=== PATIENT | male | born 1975 | race Caucasian/White ===

== ENCOUNTER 2024-02-04 20:35 | Inpatient (IN) | payer OTHER ==
[2024-02-04 21:56] LABS: Absolute Basophils 0.1 K/uL (0-0.5); Absolute Eosinophils 0.1 K/uL (0-0.5); Absolute Lymphocytes (CBC) 1.8 K/uL (0.7-4.9); Absolute Monocytes 1.1 K/uL (0.1-1.3); Absolute Neutrophil 11.4 K/uL (1.8-8.0); Basophils % 0.4 % (0-1.3); Eosinophils % 0.8 % (0-4.4); Hematocrit 47.7 % (39.6-49.0); Hemoglobin 15.8 g/dL (13.6-17.9); Lymphocytes % 12.6 % (15.3-44.8); MCH 30.1 pg (27.0-35.0); MCHC 33.2 g/dL (32.0-36.0); MCV 90.6 fL (80-100); Monocytes % 7.3 % (3.3-12.3); Neutrophils % 78.9 % (41.7-73.7); Nucleated Red Blood Cells % 0.1 % (0-0); Platelets 343 thou/uL (152-406); RBC Red Blood Cell Count 5.26 M/uL (4.33-5.43); Red Cell Distribution Width 13.6 % (12.1-15.2)
[2024-02-04] MEDS ORDERED: NA CHLORIDE 0.9% 1,000 ML ONE (21:57)
[2024-02-04] MEDS ORDERED: MORPHINE 4 MG/ML SYR ONE (21:57)
[2024-02-04] MEDS ORDERED: ONDANSETRON 4 MG/2 ML VIAL ONE (21:57)
[2024-02-04 22:12] LABS: Specific Gravity 1.007 (1.005-1.030); Sqamous Epithelial None Seen /HPF (None Seen); Urine Bacteria None Seen /HPF (<20); Urine Bilirubin NEGATIVE (Negative); Urine Blood Negative (Negative); Urine Clarity Turbid (Clear); Urine Color Light-Yellow (Yellow); Urine Crystals Unidentified Few /HPF (None Seen); Urine Culture Reflex Order NOT NEEDED; Urine Glucose NEGATIVE (Negative); Urine Ketones NEGATIVE (Negative); Urine Microscopic Reflex YN ORDER UMIC; Urine Nitrite NEGATIVE (Negative); Urine Protein NEGATIVE (Negative); Urine RBC <5 /HPF (None Seen); Urine Urobilinogen Normal (Normal); Urine WBC <5 /HPF (<5); Urine Yeast (Budding) Trace /HPF (None Seen)
[2024-02-04 22:12] LABS: Albumin 3.3 g/dL (3.4-5.0); Albumin/Globulin Ratio 0.6 (1.1-1.8); Anion Gap 9.3 mEq/L (5.0-15.0); Bilirubin Total 0.6 mg/dL (0.2-1.0); Globulin 5.1 g/dL (2.3-3.5); Potassium 3.3 mEq/L (3.5-5.1); Protein, Total 8.4 g/dL (6.4-8.2)
--- NOTE | 2024-02-05 00:05 | RAD REPORT ---
EXAM DESCRIPTION: Abdomen Exam Limited CLINICAL HISTORY: 48 years Male, ABD PAIN TECHNIQUE: Omentum sonographic imaging of the gallbladder was performed. COMPARISON: None. FINDINGS: Partially contracted gallbladder. Multiple shadowing gallstones. No gallbladder wall thickening or pe richolecystic edema. Common bile duct measures 4 mm. IMPRESSION: 1. Cholelithiasis without sonographic evidence for cholecystitis. Electronically signed by: Urban Cummings MD 02/04/2024 11:51 PM [facility] ([facility])[3] N Due to temporary technical issues with the PACS/FOXFRAME.COMibe reporting system, reports are being signed by the in-house radiologist without review as a courtesy to ensure prompt reporting the interpreting radiologist is fully responsible for the content of the report. Transcribed Date/Time: 02/05/2024 12:04 AM
--- NOTE | 2024-02-05 00:59 | EDPHYS ---
Physician Documentation [facility] Name: Haja Milner Age: 48 yrs Sex: Male : 1975 Arrival Date: 02/04/2024 Time: 20:35 Bed 15 Private MD: ED Physician Gene Alexis HPI: 02/03 22:17 This 48 yrs old Male presents to ER via Ambulatory with complaints of Abdominal sb4 Swelling, Abdominal Pain, Diarrhea. 22:17 patient reports intermittent abdominal pain, abdominal swelling, and diarrhea x 1 week. sb4 states the pain is worse after eating. denies any n/v. did force himself to vomit once and felt better afterwards. denies any blood in his stool. denies any prior episodes of this. only medical history of htn. Historical: - Allergies: 21:00 PENICILLINS; cm10 - PMHx: 21:00 Hypertensive disorder; cm10 - PSHx: 21:00 None; cm10 - Immunization history:: Adult Immunizations up to date. - Infectious Disease History:: Denies. - Social history:: Smoking status: Patient denies any tobacco usage or history of. ROS: 22:17 Constitutional: Negative for fever, chills, and weight loss, sb4 22:17 Abdomen/GI: Positive for abdominal pain, nausea, vomiting, and diarrhea, abdominal distension, 22:17 All other systems are negative, Exam: 22:17 Head/Face: Normocephalic, atraumatic. Eyes: Extra-ocular motions intact. Periorbital sb4 areas with no swelling, redness, or edema. ENT: Mucous membranes moist. Cardiovascular: Regular rate and rhythm with a normal S1 and S2. Respiratory: No increased work of breathing, no retractions or nasal flaring. Skin: Warm, dry with normal turgor. Normal color with no rashes, no lesions, and no evidence of cellulitis. 22:17 Constitutional: The patient appears alert, awake, obese, obviously ill, 22:17 Abdomen/GI: Inspection: distension, that is mild, obese Palpation: soft, mild abdominal tenderness, in all quadrants, Vital Signs: 20:58 BP 139 / 82; Pulse 102; Resp 18; Temp 99(O); Pulse Ox 95% on R/A; Weight 181.44 kg; cm10 Height 5 ft. 11 in. ; Pain 8/10; 23:48 BP 130 / 73; Pulse 92; Resp 16; Pulse Ox 98% ; jb4 20:58 Body Mass Index 55.79 (181.44 kg, 180.34 cm) cm10 20:58 Pain Scale: Adult cm10 MDM: 21:08 Medical Screening Exam initiated sb4 02/04 00:55 Data reviewed: vital signs, nurses notes, lab test result(s), radiologic studies, I sb4 have discussed the patient's presentation/case with the attending Emergency Department Physician; and as a result, I will admit patient. Consideration of Admission/Observation Patient was admitted/placed on observation. Management of patient was discussed with the following: Boatbuilder Wood: Dr. Mayer, agrees to consult. Care significantly affected by the following chronic conditions: Hypertension, Obesity. Counseling: I had a detailed discussion with the patient and/or guardian regarding the historical points, exam findings, and any diagnostic results supporting the discharge/admit diagnosis, lab results, radiology results, the need for further work-up and treatment in the hospital. 02/03 21:26 Order name: CBC with Diff; Complete Time: 21:58 sb4 02/03 21:26 Order name: CMP; Complete Time: 22:12 sb4 02/03 21:26 Order name: Lipase; Complete Time: 22:12 sb4 02/03 21:26 Order name: Urinalysis w/ reflexes; Complete Time: 22:13 sb4 02/04 00:54 Order name: Blood Culture Adult (2) sb4 02/04 00:54 Order name: Lactate w/ 2H reflex if indic.; Complete Time: 15:28 sb4 02/04 00:54 Order name: Protime (+inr); Complete Time: 15:28 sb4 02/04 00:54 Order name: Ptt, Activated; Complete Time: 15:28 sb4 02/04 01:40 Order name: Urinalysis w/ reflexes EDMS 02/04 01:40 Order name: CBC with Automated Diff EDMS 02/04 01:40 Order name: CBC with Automated Diff EDMS 02/04 01:40 Order name: Comprehensive Metabolic Panel EDMS 02/04 01:40 Order name: Comprehensive Metabolic Panel EDMS 02/03 22:23 Order name: Abdomen Limited US; Complete Time: 00:45 sb4 02/03 23:16 Order name: Abdomen 1 View (KUB) XRAY; Complete Time: 15:28 sb4 02/04 01:40 Order name: CONS Physician Consult EDNJ 02/03 21:26 Order name: IV Saline Lock; Complete Time: 22:10 sb4 02/03 21:26 Order name: Labs collected and sent; Complete Time: 22:10 sb4 Administered Medications: 02/03 22:10 Drug: Ondansetron IVP 4 mg IVP once; over 2 minutes Route: IVP; Site: right antecubital;jb4 02/04 00:57 Follow up: Response: No adverse reaction; Marked relief of symptoms; [facility] 02/[facility] 22:10 Drug: morphine IVP or IV 4 mg IVP once over 4 mins Route: IVP; Infused Over: 4 mins; jb4 Site: right antecubital; 22:40 Follow up: Response: No adverse reaction; Marked relief of symptoms; Pain is decreased; jb4 RASS: Alert and Calm (0) 22:10 Drug: NS 0.9% IV 1000 ml IV at 1 bolus Per protocol; to be given as a bolus over 60 jb4 minutes Route: IV; Rate: 1 bolus; Site: right antecubital; 23:10 Follow up: Response: No adverse reaction; IV Status: Completed infusion; IV Intake: jb4 1000ml 02/04 01:53 Drug: Ciprofloxacin IVPB 400 mg 200 ml IVPB once over 60 mins Volume: 200 ml; Route: jb4 IVPB; Infused Over: 60 mins; Site: right antecubital; 01:53 Drug: metroNIDAZOLE IVPB 500 mg 100 ml IVPB at 200 ml/hr once over 30 mins Volume: 100 jb4 ml; Route: IVPB; Rate: 200 ml/hr; Infused Over: 30 mins; Site: left forearm; 01:53 Drug: NS 0.9% IV 1000 ml IV at 100 ml/hr once; to be given as a bolus over 60 minutes jb4 Route: IV; Rate: 100 ml/hr; Site: left forearm; Disposition: 04:15 Co-signature as Attending Physician, Gene Alexis MD I agree with the assessment sp4 and plan of care. I reviewed the patient's care provided by Advanced Practice Provider \T\ agree w/ the diagnosis \T\ care plan. I personally saw the pt \T\ performed a substantive portion of the visit, incldng all aspects of the (History/Exam/Medical Decision Making). Disposition Summary: 02/05/24 00:58 Hospitalization Ordered Notes: Hospitalization Status: Inpatient Admission sb4 Provider: Aakash Espinosa sb4 Location: Telemetry/MedSurg (Inpatient) sb4 Condition: Fair sb4 Problem: new sb4 Symptoms: are unchanged sb4 Bed/Room Type: Standard sb4 Room Assignment: 408(02/05/24 01:52) ha1 Diagnosis - Small bowel obstruction sb4 Discharge Instructions: - Discharge Summary Sheet sb4 Forms: - Medication Reconciliation Form sb4 - SBAR form sb4 - Leadership Thank You Letter sb4 Signatures: Dispatcher [employer] EDHaja Rojo RN RN jb4 Viola Motta RN RN ha1 Dulce Maria Grimes PA-C PANeida sb4 Gene Alexis MD MD sp4 Reva Mayer RN RN cm10 Corrections: (The following items were deleted from the chart) 02/03 21:00 21:00 Allergies: No Known Allergies; cm10 cm10 21:27 21:27 CBC+H.LAB.BRZ ordered. EDMS EDMS 21:27 21:27 COMPREHENSIVE METABOLIC PANEL+C.LAB.BRZ ordered. EDMS EDMS 21:27 21:27 LIPASE+C.LAB.BRZ ordered. EDMS EDMS 21:27 21:27 Urinalysis+U.LAB.BRZ ordered. EDMS EDMS 22:51 21:27 Abdomen Pelvis W Con+CT.RAD.BRZ ordered. EDNJ EDMS 02/04 00:54 00:54 BLOOD CULTURE*+BA.LAB.BRZ ordered. EDMS EDMS 00:54 00:54 LACTATE+C.LAB.BRZ ordered. EDMS EDMS 00:54 00:54 PROTIME (+INR)+COAG.LAB.BRZ ordered. EDMS EDMS 00:54 00:54 PTT, ACTIVATED+COAG.LAB.BRZ ordered. EDMS EDMS 01:52 00:58 sb4 ha1
--- NOTE | 2024-02-05 00:59 | ER ---
Nurse's Notes [facility] Name: Haja Milner Age: 48 yrs Sex: Male : 1975 Arrival Date: 02/04/2024 Time: 20:35 Bed 15 Private MD: Diagnosis: Small bowel obstruction Presentation: 02/03 20:58 Chief complaint: Patient states: [place] THURSDAY SAT, SUN. PT STATES THURSDAY HE FELT cm10 BETTER WENT AND SAW PCP AND WAS PLACED ON ABX. PT STATES THAT HE FELT WORSE AFTER TAKING ABX SO DID NOT CONTINUE THEM. PT REPORTS THAT HE HAS BEEN TRYING TO EAT BUT EVERYTHING FEELS STUCK IN HIS STOMACH AND HIS ABDOMEN FEELS TIGHT. Coronavirus screen: Client denies travel out of the [place] in the last 14 days. Ebola Screen: Patient denies travel to an Ebola-affected area in the 21 days before illness onset. No symptoms or risks identified at this time. Initial Sepsis Screen: Does the patient meet any 2 criteria? HR > 90 bpm. Does the patient have a suspected source of infection? No. Patient's initial sepsis screen is negative. Risk Assessment: Do you want to hurt yourself or someone else? Patient reports no desire to harm self or others. Onset of symptoms was February 04, 2024. 20:58 Method Of Arrival: Ambulatory cm10 20:58 Acuity: JONATHAN 3 cm10 Triage Assessment: 21:01 General: Appears in no apparent distress. uncomfortable. General: Behavior is calm, cm10 cooperative. Pain: Complains of pain in abdomen Pain does not radiate. Pain currently is 8 out of 10 on a pain scale. Quality of pain is described as TIGHTNESS. Neuro: No deficits noted. Level of Consciousness is awake, alert, obeys commands, Oriented to person, place, time, situation, Appropriate for age. Neuro: Oriented to. Respiratory: No deficits noted. Airway is patent Respiratory effort is even, unlabored, Respiratory pattern is regular, symmetrical. Historical: - Allergies: 21:00 PENICILLINS; cm10 - PMHx: 21:00 Hypertensive disorder; cm10 - PSHx: 21:00 None; cm10 - Immunization history:: Adult Immunizations up to date. - Infectious Disease History:: Denies. - Social history:: Smoking status: Patient denies any tobacco usage or history of. Screenin/06 03:01 [facility] ED Fall Risk Assessment (Adult) History of falling in the last 3 months, ha1 including since admission No falls in past 3 months (0 pts) Confusion or Disorientation No (0 pts) Intoxicated or Sedated No (0 pts) Impaired Gait No (0 pts) Mobility Assist Device Used Yes (1 pt) Altered Elimination No (0 pt) Score/Fall Risk Level 3 or more points = High Risk Oriented to surroundings, Maintained a safe environment, Educated pt \T\ family on fall prevention, incl call for assistance when getting out of bed, Hourly rounding (assess needs \T\ fall precautionary measures) done. Abuse screen: Denies threats or abuse. Denies injuries from another. Nutritional screening: No deficits noted. Tuberculosis screening: No symptoms or risk factors identified. Assessment: 02/03 21:15 General: Appears in no apparent distress. uncomfortable, Behavior is calm, cooperative, jb4 appropriate for age. Pain: Complains of pain in abdomen Pain does not radiate. Pain currently is 9 out of 10 on a pain scale. Neuro: Level of Consciousness is awake, alert, obeys commands, Oriented to person, place, time, situation. Cardiovascular: Patient's skin is warm and dry. Respiratory: Airway is patent Respiratory effort is even, unlabored, Respiratory pattern is regular, symmetrical. GI: Abdomen is non-distended, obese, Reports upper abdominal pain, nausea. Derm: Skin is intact, Skin is pink, warm \T\ dry. Musculoskeletal: Circulation, motion, and sensation intact. Range of motion: intact in all extremities. 22:30 Reassessment: Patient appears in no apparent distress at this time. Patient and/or jb4 family updated on plan of care and expected duration. Pain level reassessed. Patient is alert, oriented x 3, equal unlabored respirations, skin warm/dry/pink. 23:50 Reassessment: Patient appears in no apparent distress at this time. Patient and/or jb4 family updated on plan of care and expected duration. Pain level reassessed. Patient is alert, oriented x 3, equal unlabored respirations, skin warm/dry/pink. Vital Signs: 20:58 BP 139 / 82; Pulse 102; Resp 18; Temp 99(O); Pulse Ox 95% on R/A; Weight 181.44 kg; cm10 Height 5 ft. 11 in. ; Pain 8/10; 23:48 BP 130 / 73; Pulse 92; Resp 16; Pulse Ox 98% ; jb4 20:58 Body Mass Index 55.79 (181.44 kg, 180.34 cm) cm10 20:58 Pain Scale: Adult cm10 ED Course: 20:39 Patient arrived in ED. jj6 20:41 Dulce Maria Grimes PA-C is PHCP. sb4 20:41 Gene Alexis MD is Attending Physician. sb4 21:00 Triage completed. cm10 21:01 Arm band placed on left wrist. Patient placed in waiting room. cm10 22:09 Haja Ngo, RN is Primary Nurse. jb4 22:10 Urinalysis w/ reflexes Sent. jb4 23:00 No provider procedures requiring assistance completed. Inserted saline lock: 22 gauge ha1 in right forearm, using aseptic technique. 23:26 Abdomen Limited US In Process Unspecified. EDMS 12 00:08 Abdomen 1 View (KUB) XRAY In Process Unspecified. EDMS 00:57 Aakash Espinosa MD is Hospitalizing Provider. sb4 01:39 Inserted saline lock: 24 gauge in left wrist, using aseptic technique. Blood collected. ha1 Flushed with 10 mL NS. Administered Medications: 02/03 22:10 Drug: Ondansetron IVP 4 mg IVP once; over 2 minutes Route: IVP; Site: right antecubital;jb4 02/04 00:57 Follow up: Response: No adverse reaction; Marked relief of symptoms; Nausea is decreasedjb4 02/03 22:10 Drug: morphine IVP or IV 4 mg IVP once over 4 mins Route: IVP; Infused Over: 4 mins; jb4 Site: right antecubital; 22:40 Follow up: Response: No adverse reaction; Marked relief of symptoms; Pain is decreased; jb4 RASS: Alert and Calm (0) 22:10 Drug: NS 0.9% IV 1000 ml IV at 1 bolus Per protocol; to be given as a bolus over 60 jb4 minutes Route: IV; Rate: 1 bolus; Site: right antecubital; 23:10 Follow up: Response: No adverse reaction; IV Status: Completed infusion; IV Intake: jb4 1000ml 02/04 01:53 Drug: Ciprofloxacin IVPB 400 mg 200 ml IVPB once over 60 mins Volume: 200 ml; Route: jb4 IVPB; Infused Over: 60 mins; Site: right antecubital; 01:53 Drug: metroNIDAZOLE IVPB 500 mg 100 ml IVPB at 200 ml/hr once over 30 mins Volume: 100 jb4 ml; Route: IVPB; Rate: 200 ml/hr; Infused Over: 30 mins; Site: left forearm; 01:53 Drug: NS 0.9% IV 1000 ml IV at 100 ml/hr once; to be given as a bolus over 60 minutes jb4 Route: IV; Rate: 100 ml/hr; Site: left forearm; Intake: 02/03 23:10 IV: 1000ml; Total: 1000ml. jb4 Outcome: 02/04 00:58 Decision to Hospitalize by Provider. sb4 03:02 Admitted to Tele accompanied by tech, via stretcher, room 408, with chart, ha1 03:02 Condition: stable 03:07 Patient left the ED. vk Signatures: Dispatcher [employer] EDMS Haja Ngo RN RN jb4 Frannie Allen jj6 Viola Motta RN RN ha1 Dulce Maria Grimes, PA-C PA-C sb4 Reva Mayer, RN RN cm10 Nata nUger vk Corrections: (The following items were deleted from the chart) 02/03 21:00 21:00 Allergies: No Known Allergies; cm10 cm10 02/04 01:53 01:53 metroNIDAZOLE IVPB 500 mg 100 ml IVPB at 200 ml/hr in left antecubital over 30 jb4 mins jb4
[2024-02-05] MEDS ORDERED: METRONIDAZOLE 500mg IVPB 500 MG/100 ML BAG IV ONE (01:06)
[2024-02-05] MEDS ORDERED: CIPROFLOXACIN 400mg IV 400 MG/200 ML BAG IV ONE (01:06)
[2024-02-05] MEDS ORDERED: ACETAMINOPHEN 325 MG TABLET PO PRN (01:35)
[2024-02-05] MEDS ORDERED: ONDANSETRON 4 MG/2 ML VIAL IV PRN (01:35)
--- NOTE | 2024-02-05 01:35 | P.HP ---
Certification for Inpatient Patient admitted to: Inpatient With expected LOS: >2 Midnights Practitioner: I am a practitioner with admitting privileges, knowledge of patient current condition, hospital course, and medical plan of care. Services: Services provided to patient in accordance with Admission requirements found in Title 42 Section 412.3 of the Code of Federal Regulations Patient History Date of Service: 02/05/24 Reason for admission: Abdominal discomfort History of Present Illness: 48 yrs old Male with past medical history of hypertension, morbid obesity who started having abdominal discomfort a week ago. Patient noted to have diarrhea on and off with and without cramping which started a week ago and was intermittent. Denies any fever or chills. Denies any melena. Was seen by PCP and was started on Flagyl without much improvement. Patient started having abdominal distention and had an episode of vomiting. Still continues to have abdominal pain intermittent, pain is located in epigastrium. Denies any chest pain or shortness of breath. Patient still continues to have diarrhea on and off. As he was getting progressively weaker and was pain and distention was worsening was brought to ER. Patient was assessed in the ER and had an ultrasound of the abdomen which was consistent with cholelithiasis but no signs of acute cholecystitis. Patient al so noted to have possible SBO as per KUB. Patient has never had a history of pancreatitis. Nonalcoholic. He could not do a CT because of weight. ER consulted Dr. Mayer who agreed with admission and follow-up Allergies Penicillins Allergy (Unverified 06/01/14 20:16) Unknown Home medications list reviewed: Yes - Past Medical/Surgical History Past Medical History: Reviewed- Non-Contributory -: Hypertension -: Morbid obesity Past Surgical History: Reviewed- Non-Contributory - Social History Smoking Status: Never smoker Review of Systems 10-point ROS is otherwise unremarkable Physical Examination - Vital Signs Temperature: 97.2 F Blood Pressure: 146/82 Pulse: 78 Respirations: 18 Pulse Ox (%): 94 - Physical Exam General: Alert, Oriented x3, Cooperative, Mild distress, Obese HEENT: Atraumatic, Normocephalic Neck: Supple, 2+ carotid pulse no bruit Respiratory: Clear to auscultation bilaterally, Normal air movement Cardiovascular: Normal pulses, Regular rate/rhythm, Normal S1 S2 Capillary refill: <2 Seconds Gastrointestinal: W/out hepatosplenomegaly, Distended, Tenderness Musculoskeletal: No clubbing, No swelling Integumentary: No rashes, No breakdown Neurological: Normal speech, Normal strength at 5/5 x4 extr, Cranial nerves 3-12 intact, Normal reflexes 2+ Lymphatics: No axilla or inguinal lymphadenopathy - Studies Laboratory Data (last 24 hrs) 02/04/24 02/04/24 21:46 21:46 WBC 14.50 H Hgb 15.8 Hct 47.7 Plt Count 343 Sodium 135 L Potassium 3.3 L BUN 10 Creatinine 0.95 Glucose 118 H Total Bilirubin 0.6 AST 47 H ALT 112 H Alkaline Phosphatase 115 Lipase 127 H Assessment and Plan - Plan Small bowel obstruction Pain control KUB noted Could not do a CT Consulted Dr. Mayer from ER N.p.o. for now IV fluids Acute gastroenteritis Started on IV antibiotic Monitor closely Cholelithiasis No signs of acute cholecystitis Surgical consult Elevated lipase noted CBD 4 mm size only Awaiting further recommendations from surgery Elevated LFTs noted Will repeat LFTs in a.m. Hypertension Hydralazine as needed Will continue p.o. antihypertensives when SBO resolves Hypokalemia Electrolytes monitor and replace accordingly Morbid obesity Advise lifestyle modification GI/DVT prophylaxis Advanced directive full code Discharge Plan: Home Plan to discharge in: 48 Hours - Advance Directives Does patient have a Living Will: No Does patient have a Durable POA for Healthcare: No - Code Status/Comfort Care Code Status: Full Code Time Spent Managing Pts Care (In Minutes): 48
[2024-02-05] MEDS ORDERED: NA CHLORIDE 0.9% 1,000 ML ONE (01:42)
[2024-02-05 01:59] LABS: PT Prothrombin Time 13.2 SECONDS (9.4-12.5); PTT, Activated Partial Thromb 34.7 SECONDS (24.3-36.9); Protime INR 1.18
[2024-02-05] MEDS ORDERED: SODIUM CHLORIDE 0.9% 10ML INJ IV PRN (02:29)
[2024-02-05 02:53] VITALS: BMI 55.6
[2024-02-05] MEDS: NA CHLORIDE 0.9% 1,000 ML IV SCH (03:12)
[2024-02-05] MEDS: MORPHINE 2 MG/ML SYR IV PRN (03:38)
--- NOTE | 2024-02-05 05:54 | RAD REPORT ---
ADDENDUM #1 The findings were communicated with Dulce Maria Grimes PAC at 02/05/2024 12: 43 AM MEAT LOINER. Electronically signed by: Nila Barber MD 02/05/2024 12:52 AM MEAT LOINER RP End of Addendum XR ABDOMEN 1 VIEW (KUB) INDICATION: Abdominal pain. Abdominal distention. COMPARISON(S): None. TECHNIQUE: 4 views of the abdomen. FINDINGS: LOWER CHEST: Lung bases are clear. BOWELS: Multiple dilated small bowel loops with air-fluid level; suspicious for small bowel obstructi on. STOOL BURDEN: Mild. PERITONEUM: No pneumoperitoneum, noting limitation by radiographic technique. BONES/SOFT TISSUES: No acute findings. IMPRESSION: Multiple dilated small bowel loops with air-fluid level; suspicious for small bowel obstruction. Electronically signed by: Nila Barber MD 02/05/2024 12:39 AM MEAT LOINER RP Due to temporary technical issues with the PACS/[employer] reporting system, reports are being phan d by the in-house radiologist without review as a courtesy to ensure prompt reporting the interpreting radiologist is fully responsible for the content of the report. Transcribed Date/Time: 02/05/2024 5:53 AM
[2024-02-05] MEDS: PANTOPRAZOLE 40 MG INJ IVP SCH (07:54)
[2024-02-05] MEDS: Levofloxacin 750mg IV 750 MG/150 ML BAG IV SCH (07:54)
[2024-02-05] MEDS: KCL 20 MEQ/100 mL IVPB 20 MEQ/100 ML BAG IV SCH (07:54)
[2024-02-05] MEDS: METRONIDAZOLE 500mg IVPB 500 MG/100 ML BAG IV SCH (07:55)
[2024-02-05] MEDS: ENOXAPARIN 40 MG/0.4 ML SQ SCH (07:55)
[2024-02-05] MEDS ORDERED: MORPHINE 4 MG/ML SYR IV PRN (08:21)
[2024-02-05] MEDS ORDERED: HYDRALAZINE HCL 20 MG/ML VIAL IV PRN (08:22)
[2024-02-05] MEDS: D5 0.45 NS 1,000 ML with POTASSIUM CL 30 MEQ IV SCH (09:36)
[2024-02-05] MEDS ORDERED: DIPHENOX/ATROP SULF 1 TAB PO PRN (12:32)
--- NOTE | 2024-02-05 12:40 | RAD REPORT ---
EXAM: XR Abdomen W Erect HISTORY: [facility] sbo COMPARISON: 02/04/2024 FINDINGS: Single view of the abdomen shows relative paucity of bowel gas, which is a nonspecific find ing, could relate to patient's supine positioning. The few visualized small bowel loops in the central abdomen show persistent caliber dilation, up to 6 cm. No suspicious calcifications are seen. The bones are unremarkable. IMPRESSION: Persistent small bowel dilation as above.
--- NOTE | 2024-02-05 14:19 | P.PN ---
Date of Service: 02/05/24 Brief IM note This is 48 years old gentleman with past medical history notable for hypertension, morbid obesity who presented emergency room for evaluation of watery diarrhea, abdominal distention and discomfort for a week. Possible small bowel obstruction suspected on x-ray, patient is admitted on general medical floor. #1 acute gastroenteritis Simple abdomen shows mild dilatation of small bowel, likely ileus, unable to obtain CT of the abdomen due to his body habitus I agree with general surgeons, Dr. Mayer, will trt oral challenge, symptomatic management with Lomotil, continue IV fluid There is no GI pathogen panel test available at this facility, no clinical suspicion for C. difficile colitis #2 possible symptomatic cholelithiasis Abdominal ultrasound shows multiple gallstones, no sonographic sign of acute cholecystitis and clinically Outpatient cholecystectomy is indicated, I will discontinue IV antibiotics #3 mild hypokalemia due to #1 Will replace to by IV, recheck electrolytes tomorrow morning.
--- NOTE | 2024-02-05 19:15 | CON ---
Date of Consultation: 02/05/2024 Diagnosis: Diarrhea for a week with abdominal discomfort. History Of Present Illness: This is a case of a 48-year-old patient who has been dealing with diarrh ea for about a week. It started last Thursday. Today is Thursday. He is okay on and off, has not been constant diarrhea, but he came in discomfort and colicky spasms. He visited his primary doctor. The y even gave him some medication to treat a possible Salmonella, although no cultures were done that w e can prove it. He says he feels a little bit better and then last night, it got worse to the point that he came to the ER, mainly it is a colicky pain with diarrhea. He denies any specific area. He denies any dysuria, hematuria, hematochezia, melena. Denies any traveling out of the country. Denie s any family member sick at home. He says he knows to have history of gallbladder stones in the past , but has not given him any trouble. Past Allergies: Penicillin. Medical History: Morbid obesity, weight of 407 pounds, hypertension. Surgical History: None. Social History: He does not smoke. He does not drink alcohol. Family History: Noncontributory. Review of Systems: Nausea, bloating, abdominal distention, and diarrhea and no blood in the stools. No previous colonos copies. Physical Examination: Vital Signs: Reviewed, stable. General: Patient is awake, alert, oriented x3, in no distress. Eyes: Pupils are equal and reactive. Anicteric. Neck: Supple. Chest: Clear. Heart: S1-S2. Abdomen: Soft and depressible. No guarding or rebound. No peritoneal signs. He said the pain went away. No peritonitis and no guarding and no Wong signs. No psoas signs. No Rovsing signs. Rectal: Deferred. Neurological: Oriented x3. Laboratory Data: Blood work shows WBC count of 14.5, hemoglobin of 15.8, and platelets of . INR is 1.1. Potassium is 3.3. ALT 112, AST 47, alkaline phos of 115, total bilirubin is normal a t 1.6, triglycerides 124, lipase 127. This is a 48-year-old patient comes to us with mainly the diarrhea for a week and he says he was tired of it, and when he came to us, the x-ray shows, 02/04/2024, multiple dilated small bowel loops with air-fluid levels suspicious for small bowel obstruction. Abdominal ultrasound shows chol elithiasis without sonographic evidence of cholecystitis. Multiple shadowing gallstones. No gallbla dder wall thickening. No pericholecystic fluid and common bile duct about 4 mm. Assessment: This is a 48-year-old patient with diarrhea for a week. There are many factors that can be contributed. Obviously, we have no blood in stools and his cultures of stool still pending. He has gallstones for a long time. He said the pain is not usually in epigastric area. We s till, I explained to him cannot completely rule it out, but obviously, we are going to try to treat h im as a complete case, not forgetting about the x-ray findings that suggest small bowel obstruction. Unfortunately, the CAT scan may help us clarify this and specify this a little bit better, but appar ently there is a limit that because of his weight, they cannot do the CAT scan leaving us with the li mitations of x-rays, physical exam and ultrasonography. No peritonitis at this moment and the pain i s completely gone. So, we repeated the x-ray this morning, has not changed much, but once again, he says he is having bowel movement and he is feeling good today, so we are going to try to see if we ca n give him a clear liquid diet, see a trial of diet. If he does not respond, then we have different options. He may need a formal CT scan and then we are going to have to make the arrangements to get it done since this institution cannot have it done. If he improves, the workup continues as an outpa tient. We are still interested on the CAT scan and we advised him about proper diet. Obviously, he is going to need a colonoscopy, he never had it and he is due for that and may even have to have a HIDA scan in the future, he wanted to try a clear liquid diet first. GAMALIEL/WALTER Voice ID: [id number] Report ID: [id number]
[2024-02-05 21:46] VITALS: O2SAT 99
[2024-02-06 07:06] LABS: Absolute Eosinophils 0.4 K/uL (0-0.5); Absolute Lymphocytes (CBC) 2.7 K/uL (0.7-4.9); Absolute Monocytes 0.9 K/uL (0.1-1.3); Absolute Neutrophil 5.2 K/uL (1.8-8.0); Basophils % 0.4 % (0-1.3); Eosinophils % 4.1 % (0-4.4); Hematocrit 42.6 % (39.6-49.0); Hemoglobin 14.4 g/dL (13.6-17.9); Lymphocytes % 29.2 % (15.3-44.8); MCH 30.9 pg (27.0-35.0); MCHC 33.8 g/dL (32.0-36.0); MCV 91.5 fL (80-100); MPV 7.9 fL (7.6-11.3); Neutrophils % 56.3 % (41.7-73.7); Nucleated Red Blood Cells % 0.1 % (0-0); Platelets 301 thou/uL (152-406); RBC Red Blood Cell Count 4.65 M/uL (4.33-5.43); Red Cell Distribution Width 13.6 % (12.1-15.2)
[2024-02-06 07:25] LABS: Albumin 2.9 g/dL (3.4-5.0); Albumin/Globulin Ratio 0.7 (1.1-1.8); Anion Gap 7.7 mEq/L (5.0-15.0); Bilirubin Total 0.5 mg/dL (0.2-1.0); Potassium 3.7 mEq/L (3.5-5.1); Protein, Total 6.9 g/dL (6.4-8.2)
[2024-02-06] MEDS ORDERED: DILTIAZEM HCL 360 MG PO SCH (09:00)
[2024-02-06] MEDS ORDERED: HOME MED 1 EA UNK (Losartan Potassium [Cozaar] 100 MG Tablet) PO SCH (09:00)
[2024-02-06] MEDS: DILTIAZEM HCL 180 MG SR CAP PO SCH (09:08)
[2024-02-06] MEDS: LOSARTAN POTASSIUM 50 MG TABLET PO SCH (09:08)
[2024-02-06] MEDS: POTASSIUM CL SA 10 MEQ TAB PO ONE (09:08)
[2024-02-06] MEDS: ASPIRIN 81 MG CHEWABLE TABLET PO SCH (09:08)
[2024-02-06 16:10] VITALS: BP 118/64; TEMP 98.4
--- NOTE | 2024-02-06 16:21 | P.DS ---
Admission Date: 02/05/24 Discharge Date: 02/06/24 Disposition: ROUTINE DISCHARGE Discharge Condition: GOOD Reason for Admission: Abdominal discomfort Brief History of Present Illness: This is 48 years old gentleman with past medical history notable for hypertension, morbid obesity who presented emergency room for evaluation of watery diarrhea, abdominal distention and discomfort for a week after eating sandwich. Emergency room workup showed possible small bowel obstruction suspected on x-ray, patient was admitted on general medical floor. Hospital Course: Patient was started on IV fluid, pain control with antispasmodics and IV morphine. Patient symptom improved and diarrhea resolved on his own. Patient tolerated oral diet without any worsening symptoms, his diet was advanced to full liquid diet the next day. He was discharged home and he will be followed with general surgeon, Dr. Aleksandar Mayer for cholelithiasis or recurrent abdominal pain. Discharge diagnosis #1 acute gastroenteritis secondary to suspected food poisoning Simple abdomen shows mild dilatation of small bowel, likely ileus, unable to obtain CT of the abdomen due to his body habitus #2 possible symptomatic cholelithiasis without cholecystitis Abdominal ultrasound shows multiple gallstones, no sonographic sign of acute cholecystitis and clinically Outpatient cholecystectomy may be indicated. #3 mild hypokalemia related to #1 Resolved #4 controlled hypertension #5 morbid obesity Vital Signs/Physical Exam: Temp Pulse Resp BP Pulse Ox 98.4 F 75 14 118/64 98 02/06/24 16:00 02/06/24 16:00 02/06/24 16:00 02/06/24 16:00 02/06/24 16:00 Other Physical/Emotional Findings: - Physical Exam. General: Morbidly obese, not acutely ill looking, in no apparent distress,. HEENT: Normocephalic, atraumatic, nonicteric sclera, nonanemic conjunctive. Neck: Supple, without JVD or goiter or thyroid mass. Respiratory: Normal breathing effort, clear to auscultation bilaterally, no crackles no wheezing or rhonchi. Cardiovascular: Regular rate and rhythm, S1, S2 normal, no murmur no gallop. Gastrointestinal: Normal bowel sounds, nondistended, nontender, No ascites, , No masses, no hepatosplenomegaly. Extremities l: No clubbing, No peripheral edema, full range of motion, no deformity, no muscle atrophy. Integumentary: No rashes, petechia, suspected lesions. Lymphatics: No axilla or cervical lymphadenopathy. Neurology; alert awake oriented x3, no focal neurologic deficit, normal affection . mood and behavior. Laboratory Data at Discharge: WBC 9.30 thou/uL (4.3-10.9) 02/06/24 06:24 Hgb 14.4 g/dL (13.6-17.9) 02/06/24 06:24 Hct 42.6 % (39.6-49.0) 02/06/24 06:24 Plt Count 301 thou/uL (152-406) 02/06/24 06:24 PT 13.2 SECONDS (9.4-12.5) H 02/05/24 01:40 INR 1.18 02/05/24 01:40 APTT 34.7 SECONDS (24.3-36.9) 02/05/24 01:40 Sodium 137 mEq/L (136-145) 02/06/24 06:24 Potassium 3.7 mEq/L (3.5-5.1) 02/06/24 06:24 BUN 7 mg/dL (7-18) 02/06/24 06:24 Creatinine 0.87 mg/dL (0.70-1.30) 02/06/24 06:24 Glucose 108 mg/dL (74-106) H 02/06/24 06:24 Total Bilirubin 0.5 mg/dL (0.2-1.0) 02/06/24 06:24 AST 47 U/L (15-37) H 02/06/24 06:24 ALT 106 U/L (16-61) H 02/06/24 06:24 Alkaline Phosphatase 93 U/L (45-117) 02/06/24 06:24 Triglycerides 124 mg/dL (<150) 02/05/24 03:17 Cholesterol 170 mg/dL (<200) 02/05/24 03:17 HDL Cholesterol 38 mg/dL (40-60) L 02/05/24 03:17 Cholesterol/HDL Ratio 4.47 02/05/24 03:17 Lipase 127 U/L (13-75) H 02/04/24 21:46 Home Medications: Aspirin Chewable [Aspirin Chewable*] 1 tab PO DAILY 02/05/24 Diltiazem HCl [Diltiazem ER] 1 cap PO DAILY 02/05/24 Losartan Potassium [Cozaar] 1 tab PO DAILY 02/05/24 Diphenox/Atropine [Lomotil*] 2 tab PO QID PRN #10 tab 02/06/24 Ondansetron [Ondansetron Odt] 8 mg PO TID PRN #15 02/06/24 New Medications: Diphenox/Atropine [Lomotil*] 2 tab PO QID PRN #10 tab PRN Reason: Diarrhea Ondansetron [Ondansetron Odt] 8 mg PO TID PRN #15 PRN Reason: Nausea / Vomiting Diet: [place] Activity: Ad isabelle Followup: NONE,NONE [Primary Care Provider] - lAeksandar Mayer MD [ACTIVE - CAN ADMIT] -
== END 2024-02-06 16:55 | disposition home or self-care (01) | DRG 389 ==
LOC: ER 20:35 → ERHOLD 02-05 01:35 → 4TH 02-05 02:34
PROVIDERS: ADMIT Family Medicine; ATTEND Internal Medicine
DX: K56.699 Other intestinal obstruction unspecified as to partial versus complete obstruction (principal); Z68.43 Body mass index [BMI] 50.0-59.9, adult; A05.9 Bacterial foodborne intoxication, unspecified; E66.01 Morbid (severe) obesity due to excess calories; E87.6 Hypokalemia; I10 Essential (primary) hypertension; K80.20 Calculus of gallbladder without cholecystitis without obstruction; K52.9 Noninfective gastroenteritis and colitis, unspecified; R79.89 Other specified abnormal findings of blood chemistry; Z88.0 Allergy status to penicillin; Z79.82 Long term (current) use of aspirin; Z79.899 Other long term (current) drug therapy
CPT/HCPCS: 36415; 74018; 74019; 76705; 80053; 80061; 81001; 83605; 83690; 84132; 85025; 85610; 85730; 87040; 87045; 87046; 87177; 87209; 94760; 99285; J0744; J1650; J2270; J2405; J2470; J3480; J7030; J7799